=== PATIENT | female | born 1970 | race Caucasian/White ===

== ENCOUNTER 2021-12-12 17:58 | Emergency (ER) | payer MEDICAID ==
[~2021-12-12] VITALS: Ht 152.4 cm; Wt 81.0 kg
[2021-12-12] MEDS ORDERED: CLOT21CR4 VG (23:16)
[2021-12-12] MEDS ORDERED: PYR200 PO (23:16)
[2021-12-12] MEDS ORDERED: ACET-2708 PO (23:16)
[2021-12-12] MEDS ORDERED: SULF1TAB48 PO (23:16)
[2021-12-12 23:42] LABS: CLARITY URINE CLOUDY (CLEAR); COLOR URINE YELLOW (YELLOW); KETONES URINE NEGATIVE (NEGATIVE); LEUKOCYTE ESTERASE URINE 3+ (NEGATIVE); NITRITE URINE NEGATIVE (NEGATIVE); OCCULT BLOOD URINE 3+ (NEGATIVE); PH URINE 5.5 (4.5-8.0); PROTEIN URINE 1+ (NEGATIVE); SPECIFIC GRAVITY URINE 1.006 (1.005-1.030); UROBILINOGEN URINE 0.2 E.U./dL (0.2-1.0)
[2021-12-13 00:49] VITALS: BP 108/78
== END 2021-12-13 00:49 | disposition home or self-care (01) ==
LOC: ER 17:58
DX: M79.601 Pain in right arm (principal); N39.0 Urinary tract infection, site not specified
CPT/HCPCS: 81003; 87077; 87186; 99283